=== PATIENT | female | born 1985 | race African-American/Black ===

== ENCOUNTER 2022-05-12 19:20 | Emergency (ER) | payer SELFPAY ==
[~2022-05-12] VITALS: Ht 165.1 cm; Wt 95.0 kg
[2022-05-12 23:00] VITALS: BP 147/96
== END 2022-05-12 23:05 | disposition home or self-care (01) ==
LOC: ER 19:20
DX: S63.502A Unspecified sprain of left wrist, initial encounter (principal); X58.XXXA Exposure to other specified factors, initial encounter; Y93.89 Activity, other specified; Y92.89 Other specified places as the place of occurrence of the external cause; Y99.8 Other external cause status
CPT/HCPCS: 29125; 73110